=== PATIENT | male | born 1935 | race Caucasian/White ===

== ENCOUNTER 2016-12-13 13:11 | Emergency (ER) | payer BC, OTHER ==
[~2016-12-13] VITALS: Ht 172.7 cm; Wt 72.6 kg
[~2016-12-13 13:11] MED LIST: AMLO5TAB4 PO; CALC200T PO; CYAN100070 PO; FOLI-43 PO; IRON1TAB93 PO; LISI40TA4 PO; LOSA50TA3 PO
[2016-12-13 13:20] VITALS: BP 129/60; PULSE 62; RESP 16; TEMP 97.4; O2SAT 99
--- NOTE | 2016-12-13 13:20 | NUR ---
DR. BRISENO AT BEDSIDE EXAMINING THE PT
--- NOTE | 2016-12-13 13:20 | NUR ---
PT. PLACED IN ROOM 5, ASSUMED CARE REPORT RECEIVED FROM FIDENCIO GAONA
[2016-12-13] MEDS ORDERED: ASPIRIN 325 MG TABLET PO ONE (13:30)
--- NOTE | 2016-12-13 13:30 | NUR ---
PT TO ER AAOx4 C/O CHEST PAIN STATES THAT HE WAS JUST ON HIS COMPUTER WHEN HE FELT CHEST PAIN LEFT SIDED VERY MILD 2/10 NON RADIATING BUT JUST WANTED TO CHECK IF EVERYTHING WAS OKAY, STATES HE FEELS OTHERWISE FINE, DENIES SOB, DENIES N/V
[2016-12-13 13:41] LABS: BASOPHILS % (AUTO) 0.8 % (0.0-2.0); EOSINOPHILS # (AUTO) 0.1 K/uL (0.0-0.4); EOSINOPHILS % (AUTO) 1.8 % (0.0-4.0); HEMATOCRIT 37.3 % (36-54); HEMOGLOBIN 12.9 g/dL (14.0-18.0); LYMPHOCYTES # (AUTO) 1.2 K/uL (1.0-5.5); LYMPHOCYTES % (AUTO) 24.6 % (20.5-51.5); MEAN CORPUSCULAR HEMOGLOBIN 36 pg (27-31); MEAN CORPUSCULAR HGB CONC 35 % (32-36); MEAN CORPUSCULAR VOLUME 103 fL (79.0-98.0); MONOCYTES # (AUTO) 0.7 K/uL (0.0-1.0); MONOCYTES % (AUTO) 13.3 % (1.7-9.3); NEUTROPHILS % (AUTO) 59.5 % (40.0-70.0); PLATELET COUNT (AUTO) 208 K/uL (130-430); RED BLOOD CELL COUNT(AUTO) 3.62 MIL/uL (4.2-6.2); RED CELL DISTRIBUTION WIDTH 13.5 % (9.0-15.0)
[2016-12-13 13:50] LABS: ANION GAP 9 (5-15); CALCIUM 8.8 mg/dL (8.4-11.0); CHLORIDE 100 mmol/L (98-107); CREATININE 1.06 mg/dL (0.55-1.30); GLUCOSE 99 mg/dL (70-99); POTASSIUM 4.2 mmol/L (3.5-5.1); SODIUM SERUM 135 mmol/L (136-145); UREA NITROGEN, BLOOD 15 mg/dL (8-21)
[2016-12-13 13:52] LABS: INR 0.9 (0.80-1.20); PROTHROMBIN TIME 9.9 SECS (9.5-12.5)
[2016-12-13 13:55] LABS: ALANINE AMINOTRANSFERASE 23 U/L (12-78); ALBUMIN 3.8 g/dL (3.4-4.8); ASPARTATE AMINOTRANSFERASE 24 U/L (10-37); TOTAL BILIRUBIN 1.1 mg/dL (0.0-1.0); TOTAL PROTEIN, SERUM 7.3 g/dL (6.4-8.3)
[2016-12-13 14:55] VITALS: BP 128/64; PULSE 74; RESP 18; TEMP 98.4; O2SAT 97
--- NOTE | 2016-12-13 14:55 | NUR ---
Patient given written and verbal discharge instructions and verbalizes understanding. ER MD DR. BRISENO discussed with patient the results and treatment provided. Patient in stable condition. ID arm band removed. IV catheter removed intact and dressing applied, no active bleeding. NO RX given. Patient educated on pain management and to follow up with PMD. Pain Scale 0/10 Opportunity for questions provided and answered.
== END 2016-12-13 14:55 | disposition home or self-care (01) ==
LOC: SED 13:11
DX: R07.89 Other chest pain (principal); I10 Essential (primary) hypertension; Z88.5 Allergy status to narcotic agent
CPT/HCPCS: 36415; 71010; 80053; 84484; 85025; 85610-TC; 85730-TC; 93005; 99285

== ENCOUNTER 2019-02-13 06:57 | Emergency (ER) | payer BC, OTHER ==
[~2019-02-13] VITALS: Ht 172.7 cm; Wt 73.9 kg
[2019-02-13 06:57] VITALS: BP_SYST 157
[~2019-02-13 06:57] MED LIST changes: -CALC200T PO; +CALC200T47 PO; -LISI40TA4 PO
--- NOTE | 2019-02-13 06:57 | NUR ---
BROUGHT BACK TO BED #8 AND TRIAGED. REPORT GIVEN TO YADIEL
--- NOTE | 2019-02-13 07:17 | NUR ---
ER Dr. DALTON at bedside examining patient.
--- NOTE | 2019-02-13 07:20 | NUR ---
Patient came to ER with complaints of pain in neck. Patient describe the pain as dull and radiates upwards to his head. PT denies N/V. Neuro intact AOx4.
--- NOTE | 2019-02-13 07:40 | NUR ---
# 20 gauge angiocath placed to left forearm. Use of asceptic technique. Opsite placed over site. Blood return noted. Blood for lab drawn from site. Flushed with 10 cc of normal saline. No evidence of infiltration noted. Patient tolerated well.
[2019-02-13] MEDS ORDERED: IOHEXOL 350 mgI/mL, 150 ML INFUS..BTL IV ONE (07:51)
--- NOTE | 2019-02-13 07:55 | NUR ---
Patient transported to radiology via [facility] , accompanied by rad staff .
[2019-02-13 08:00] LABS: BASOPHILS % (AUTO) 1.1 % (0.0-2.0); EOSINOPHILS # (AUTO) 0.2 K/uL (0.0-0.4); EOSINOPHILS % (AUTO) 5.9 % (0.0-4.0); HEMATOCRIT 41.5 % (36-54); HEMOGLOBIN 14.4 g/dL (14.0-18.0); LYMPHOCYTES # (AUTO) 0.9 K/uL (1.0-5.5); LYMPHOCYTES % (AUTO) 25.1 % (20.5-51.5); MEAN CORPUSCULAR HEMOGLOBIN 34 pg (27-31); MEAN CORPUSCULAR HGB CONC 35 % (32-36); MEAN CORPUSCULAR VOLUME 99 fL (79.0-98.0); MONOCYTES # (AUTO) 0.5 K/uL (0.0-1.0); MONOCYTES % (AUTO) 14.1 % (1.7-9.3); NEUTROPHILS # (AUTO) 1.9 K/uL (1.8-7.7); NEUTROPHILS % (AUTO) 53.8 % (40.0-70.0); PLATELET COUNT (AUTO) 227 K/uL (130-430); WHITE BLOOD COUNT (AUTO) 3.5 K/uL (4.8-10.8)
[2019-02-13 08:12] LABS: ANION GAP 6 (5-15); CHLORIDE 101 mmol/L (98-107); CREATININE 1.04 mg/dL (0.55-1.30); GLUCOSE 97 mg/dL (70-99); POTASSIUM 4.3 mmol/L (3.5-5.1); SODIUM SERUM 134 mmol/L (136-145); UREA NITROGEN, BLOOD 17 mg/dL (8-21)
--- NOTE | 2019-02-13 08:15 | NUR ---
Returned from radiology, back to [facility].
[2019-02-13 08:17] LABS: ALANINE AMINOTRANSFERASE 19 U/L (12-78); ALBUMIN 3.3 g/dL (3.4-4.8); ASPARTATE AMINOTRANSFERASE 22 U/L (10-37); TOTAL BILIRUBIN 0.9 mg/dL (0.0-1.0)
[2019-02-13 08:37] LABS: PROTHROMBIN TIME 10.1 SECS (9.5-12.5)
--- NOTE | 2019-02-13 09:55 | NUR ---
Pt has no acute distress noted.Continuing to monitor.
[2019-02-13 10:50] VITALS: BP_SYST 152
--- NOTE | 2019-02-13 10:51 | NUR ---
Patient given written and verbal discharge instructions and verbalizes understanding. ER MD discussed with patient the results and treatment provided. Patient in stable condition. ID arm band removed. IV catheter removed intact and dressing applied, no active bleeding. Rx of Naprosyn given. Patient educated on pain management and to follow up with PMD. Pain Scale 2. Opportunity for questions provided and answered. Medication side effect fact sheet provided.
== END 2019-02-13 08:02 | disposition home or self-care (01) ==
LOC: SED 06:57
DX: M54.2 Cervicalgia (principal); R51 Headache; I10 Essential (primary) hypertension; Z88.5 Allergy status to narcotic agent; Z79.899 Other long term (current) drug therapy
CPT/HCPCS: 36415; 70496; 70498; 80053; 84484; 85025; 85610; 85730; 93005; 99284; Q9967

== ENCOUNTER 2019-03-26 18:30 | Emergency (ER) | payer BC ==
[~2019-03-26] VITALS: Ht 172.7 cm; Wt 74.4 kg
[2019-03-26 18:34] VITALS: BP_SYST 137
[2019-03-26] MEDS ORDERED: DIPH-TET Vacc 0.5 ML VIAL I.M. ONE (19:15)
[2019-03-26 19:30] VITALS: BP_SYST 126
== END 2019-03-26 19:30 | disposition home or self-care (01) ==
LOC: SED 18:30
DX: S51.811A Laceration without foreign body of right forearm, initial encounter (principal); I10 Essential (primary) hypertension; Z88.5 Allergy status to narcotic agent; Z79.899 Other long term (current) drug therapy; X58.XXXA Exposure to other specified factors, initial encounter; Y93.89 Activity, other specified; Y92.89 Other specified places as the place of occurrence of the external cause; Y99.8 Other external cause status
CPT/HCPCS: 90714; 99283

== ENCOUNTER 2019-10-01 09:42 | Emergency (ER) | payer BC ==
[~2019-10-01] VITALS: Ht 172.7 cm; Wt 75.3 kg
[2019-10-01 10:01] VITALS: BP_SYST 141
--- NOTE | 2019-10-01 10:01 | NUR ---
Patient to ER bed 8 to gown for evaluation. Side rails up. Report given to JIMENEZ Carrasco.
--- NOTE | 2019-10-01 10:02 | NUR ---
Patient is awake, alert, and oriented x4. Patient reports that he was leaning in to a trash can to get something and hurt himself on his right lower rib cage. Patient denies any other issues at this time.
--- NOTE | 2019-10-01 10:08 | NUR ---
Patient instructed that a urine sample is needed, provided instructions on how to provide sample, urine sample cup. Patient verbalized understanding and states he can not urinate at this time.
--- NOTE | 2019-10-01 10:38 | NUR ---
X-ray at bedside.
[2019-10-01 10:41] LABS: BASOPHILS % (AUTO) 0.9 % (0.0-2.0); EOSINOPHILS # (AUTO) 0.1 K/uL (0.0-0.4); EOSINOPHILS % (AUTO) 1.6 % (0.0-4.0); HEMATOCRIT 39.8 % (36-54); HEMOGLOBIN 14.1 g/dL (14.0-18.0); LYMPHOCYTES # (AUTO) 0.7 K/uL (1.0-5.5); LYMPHOCYTES % (AUTO) 22.2 % (20.5-51.5); MEAN CORPUSCULAR HEMOGLOBIN 35 pg (27-31); MEAN CORPUSCULAR HGB CONC 36 % (32-36); MEAN CORPUSCULAR VOLUME 99 fL (79.0-98.0); MONOCYTES # (AUTO) 0.4 K/uL (0.0-1.0); MONOCYTES % (AUTO) 12.8 % (1.7-9.3); NEUTROPHILS % (AUTO) 62.5 % (40.0-70.0); PLATELET COUNT (AUTO) 291 K/uL (130-430); RED CELL DISTRIBUTION WIDTH 12.7 % (9.0-15.0); WHITE BLOOD COUNT (AUTO) 3.2 K/uL (4.8-10.8)
[2019-10-01 10:55] LABS: ANION GAP 9 (5-15); CALCIUM 8.7 mg/dL (8.4-11.0); CHLORIDE 94 mmol/L (98-107); CREATININE 1.02 mg/dL (0.55-1.30); GLUCOSE 85 mg/dL (70-99); POTASSIUM 4.2 mmol/L (3.5-5.1); SODIUM SERUM 130 mmol/L (136-145); UREA NITROGEN, BLOOD 16 mg/dL (8-21)
[2019-10-01 11:01] LABS: ALANINE AMINOTRANSFERASE 24 U/L (12-78); ALBUMIN 3.9 g/dL (3.4-4.8); ASPARTATE AMINOTRANSFERASE 23 U/L (10-37); TOTAL BILIRUBIN 0.9 mg/dL (0.0-1.0)
--- NOTE | 2019-10-01 11:05 | NUR ---
ER Dr. Pardo at bedside examining patient.
--- NOTE | 2019-10-01 11:15 | NUR ---
Patient states he is unable to urinate at this time. He was provided 2 cups of water.
--- NOTE | 2019-10-01 11:27 | NUR ---
Patient moved to Bed 2.
[2019-10-01 11:34] LABS: BILIRUBIN,URINE NEGATIVE (NEGATIVE); BLOOD, URINE NEGATIVE (NEGATIVE); CLARITY/URINE CLEAR (CLEAR); COLOR,URINE YELLOW (YELLOW); GLUCOSE,URINE NEGATIVE (NEGATIVE); KETONES,URINE NEGATIVE (NEGATIVE); LEUKOCYTE ESTERASE ,URINE NEGATIVE (NEGATIVE); NITRITE, URINE NEGATIVE (NEGATIVE); PH,URINE 6.5 (5.0-8.0); PROTEIN URINE 1+ (NEGATIVE); UROBILINOGEN,URINE 0.2 (0.2-1.0)
[2019-10-01 11:52] LABS: RBC,URINE 0-3 /HPF (0-3)
[2019-10-01 11:53] LABS: BACTERIA,URINE RARE /HPF (None Seen); WBC,URINE 0-3 /HPF (0-3)
[2019-10-01 12:56] VITALS: BP_SYST 135
--- NOTE | 2019-10-01 12:56 | NUR ---
Patient given written and verbal discharge instructions and verbalizes understanding. ER MD Pardo discussed with patient the results and treatment provided. Patient in stable condition. ID arm band removed. IV catheter removed intact and dressing applied, no active bleeding. Rx of Tylenol with Codeine, Naprosyn given. Patient educated on pain management and to follow up with PMD. Pain Scale 0. Opportunity for questions provided and answered. Medication side effect fact sheet provided.
== END 2019-10-01 12:56 | disposition home or self-care (01) ==
LOC: SED 09:42
DX: S20.211A Contusion of right front wall of thorax, initial encounter (principal); I10 Essential (primary) hypertension; Z79.899 Other long term (current) drug therapy; Z88.6 Allergy status to analgesic agent; Z86.79 Personal history of other diseases of the circulatory system; X58.XXXA Exposure to other specified factors, initial encounter; Y93.89 Activity, other specified; Y92.89 Other specified places as the place of occurrence of the external cause; Y99.8 Other external cause status
CPT/HCPCS: 36415; 71045; 71100; 80053; 81000-TC; 84484; 85025; 93005; 99284

== ENCOUNTER 2019-11-30 21:11 | Emergency (ER) | payer BC, OTHER ==
[~2019-11-30] VITALS: Ht 172.7 cm; Wt 74.8 kg
[2019-11-30 21:11] VITALS: BP_SYST 122
--- NOTE | 2019-11-30 21:11 | NUR ---
Pt brought in by . Pt awake, alert, oriented x4. Pt states chief complaint of generalized weakeness, x2 episodes of vomiting today and a mechanical fall approx 1 week ago resulting in L hip pain. Pt states he has large bruise and feels like he cant move around as much. Pt denies chest pain, diarrhea, shortness of breth. Pt denies any other medical complaint at this time. Pt resting in ED bed comfortably, no acute distress at this time. Pt VSS
--- NOTE | 2019-11-30 21:11 | NUR ---
Patient to ER bed 3 to gown for evaluation. Side rails up.
--- NOTE | 2019-11-30 22:22 | NUR ---
ER Dr. Carvalho at bedside examining patient.
--- NOTE | 2019-11-30 22:46 | NUR ---
Radiology bedside performing Xrays
--- NOTE | 2019-11-30 22:50 | NUR ---
Laboratory bedside drawing labs.
[2019-11-30 23:04] LABS: BASOPHILS % (AUTO) 0.3 % (0.0-2.0); EOSINOPHILS % (AUTO) 0.4 % (0.0-4.0); HEMATOCRIT 32.3 % (36-54); HEMOGLOBIN 11.4 g/dL (14.0-18.0); LYMPHOCYTES # (AUTO) 0.7 K/uL (1.0-5.5); LYMPHOCYTES % (AUTO) 6.9 % (20.5-51.5); MEAN CORPUSCULAR HEMOGLOBIN 36 pg (27-31); MEAN CORPUSCULAR HGB CONC 35 % (32-36); MEAN CORPUSCULAR VOLUME 101 fL (79.0-98.0); MONOCYTES # (AUTO) 0.6 K/uL (0.0-1.0); MONOCYTES % (AUTO) 6.2 % (1.7-9.3); NEUTROPHILS # (AUTO) 8.3 K/uL (1.8-7.7); NEUTROPHILS % (AUTO) 86.2 % (40.0-70.0); PLATELET COUNT (AUTO) 293 K/uL (130-430); RED BLOOD CELL COUNT(AUTO) 3.21 MIL/uL (4.2-6.2); RED CELL DISTRIBUTION WIDTH 12.6 % (9.0-15.0); WHITE BLOOD COUNT (AUTO) 9.6 K/uL (4.8-10.8)
[2019-11-30 23:32] LABS: ANION GAP 6 (5-15); CALCIUM 8.5 mg/dL (8.4-11.0); CHLORIDE 100 mmol/L (98-107); CREATININE 1.58 mg/dL (0.55-1.30); GLUCOSE 123 mg/dL (70-99); SODIUM SERUM 134 mmol/L (136-145); UREA NITROGEN, BLOOD 19 mg/dL (8-21)
[2019-11-30 23:38] LABS: ALANINE AMINOTRANSFERASE 18 U/L (12-78); ALBUMIN 3.3 g/dL (3.4-4.8); ASPARTATE AMINOTRANSFERASE 16 U/L (10-37)
[2019-12-01 00:42] VITALS: BP_SYST 120
--- NOTE | 2019-12-01 00:42 | NUR ---
Patient given written and verbal discharge instructions and verbalizes understanding. ER MD discussed with patient the results and treatment provided. Patient in stable condition. ID arm band removed.No IV No RX Given. Patient educated on pain management and to follow up with PMD. Pain Scale 0/10. Opportunity for questions provided and answered.
== END 2019-12-01 00:42 | disposition home or self-care (01) ==
LOC: SED 21:11
DX: M25.552 Pain in left hip (principal); I10 Essential (primary) hypertension; Z79.899 Other long term (current) drug therapy; Z88.5 Allergy status to narcotic agent
CPT/HCPCS: 36415; 72170-TC; 73502; 80053; 84484; 85025; 93005; 99285

== ENCOUNTER 2019-12-08 05:24 | Emergency (ER) | payer OTHER ==
[~2019-12-08] VITALS: Ht 180.3 cm; Wt 90.7 kg
[2019-12-08 05:32] VITALS: BP_SYST 140
[2019-12-08] MEDS ORDERED: NACL 0.9% 1,000 ML IV ONE (06:00)
[2019-12-08] MEDS ORDERED: KETOROLAC TROMETHAMINE 30 MG VIAL IVP ONE (06:00)
[2019-12-08 06:34] LABS: BASOPHILS % (AUTO) 0.6 % (0.0-2.0); EOSINOPHILS # (AUTO) 0.2 K/uL (0.0-0.4); EOSINOPHILS % (AUTO) 2.1 % (0.0-4.0); HEMOGLOBIN 9.8 g/dL (14.0-18.0); LYMPHOCYTES # (AUTO) 0.8 K/uL (1.0-5.5); LYMPHOCYTES % (AUTO) 11.1 % (20.5-51.5); MEAN CORPUSCULAR HEMOGLOBIN 36 pg (27-31); MEAN CORPUSCULAR HGB CONC 35 % (32-36); MEAN CORPUSCULAR VOLUME 103 fL (79.0-98.0); MONOCYTES # (AUTO) 0.7 K/uL (0.0-1.0); MONOCYTES % (AUTO) 8.8 % (1.7-9.3); NEUTROPHILS # (AUTO) 5.8 K/uL (1.8-7.7); NEUTROPHILS % (AUTO) 77.4 % (40.0-70.0); PLATELET COUNT (AUTO) 275 K/uL (130-430); RED BLOOD CELL COUNT(AUTO) 2.71 MIL/uL (4.2-6.2); RED CELL DISTRIBUTION WIDTH 12.9 % (9.0-15.0); WHITE BLOOD COUNT (AUTO) 7.5 K/uL (4.8-10.8)
[2019-12-08 06:45] LABS: ANION GAP 6 (5-15); CALCIUM 8.4 mg/dL (8.4-11.0); CHLORIDE 101 mmol/L (98-107); CREATININE 1.19 mg/dL (0.55-1.30); GLUCOSE 106 mg/dL (70-99); SODIUM SERUM 136 mmol/L (136-145); UREA NITROGEN, BLOOD 19 mg/dL (8-21)
[2019-12-08 06:51] LABS: ALANINE AMINOTRANSFERASE 16 U/L (12-78); ASPARTATE AMINOTRANSFERASE 23 U/L (10-37); TOTAL BILIRUBIN 1.2 mg/dL (0.0-1.0)
[2019-12-08 06:53] LABS: PROTHROMBIN TIME 9.9 SECS (9.5-12.5)
[2019-12-08 10:00] VITALS: BP_SYST 146
== END 2019-12-08 10:00 | disposition short-term general hospital (02) ==
LOC: SED 05:24
DX: M25.552 Pain in left hip (principal); I10 Essential (primary) hypertension; Z79.899 Other long term (current) drug therapy; Z88.5 Allergy status to narcotic agent
CPT/HCPCS: 36415; 80053; 85025; 85610; 85730; 96374; 99285; J1885; J7030